=== PATIENT | female | born 1965 | race Caucasian/White ===

== ENCOUNTER 2022-02-10 05:54 | Emergency (ER) | payer BC ==
[2022-02-10 06:02] VITALS: BP 140/87; PULSE 80; TEMP 97.9; BMI 34.3
[2022-02-10] MEDS ORDERED: diazePAM 5 MG TABLET PO ONE (06:05)
[2022-02-10] MEDS ORDERED: IBUPROFEN 600 MG TABLET (FP) PO ONE (06:05)
[2022-02-10] MEDS ORDERED: KETOROLAC TROMETHAMINE 30 MG/1 ML VIAL IVPUSH ONE (06:15)
[2022-02-10] MEDS ORDERED: KETOROLAC TROMETHAMINE 30 MG/1 ML VIAL ONE (06:25)
[2022-02-10] MEDS ORDERED: diazePAM 5 MG TABLET ONE (06:25)
[2022-02-10 07:42] LABS: HEMATOCRIT 38.3 % (32.4-45.2); HEMOGLOBIN 13.4 G/dL (10.7-15.3); MCH 31.3 pg (25.7-33.7); MCHC 34.9 g/dl (32.0-36.0); MEAN CELL VOLUME 89.4 fl (80-96); MEAN PLT VOLUME 8.6 fl (7.5-11.1); PLATELET COUNT 322.4 10^3/uL (134-434); RBC 4.28 10^6/uL (3.60-5.2); RDW 13.5 % (11.6-15.6); WHITE BLOOD COUNT 10.5 10^3/uL (4.0-10.8)
[2022-02-10 07:43] LABS: ALBUMIN 3.8 g/dl (3.4-5.0); CALCIUM 9.5 mg/dl (8.5-10); CREATININE 0.9 mg/dl (0.55-1.3); TOT PROT 6.8 g/dl (6.4-8.2)
[2022-02-10 08:08] LABS: EPITHELIAL CELLS FEW /hpf
== END 2022-02-10 10:41 | disposition home or self-care (01) ==
LOC: FER 05:54
PROC: 3E033GC Introduction of Other Therapeutic Substance into Peripheral Vein, Percutaneous Approach (ICD-10-PCS; principal; 2022-02-10)
DX: R10.9 Unspecified abdominal pain (principal)
CPT/HCPCS: 36415; 74176-TC; 80053; 81003; 81015; 85025; 99285-25

== ENCOUNTER 2024-04-04 17:44 | Emergency (ER) | payer BC ==
[2024-04-04 18:00] VITALS: BP 138/90; PULSE 76; RESP 16; TEMP 98.1; BMI 35.6
[2024-04-04] MEDS ORDERED: KETOROLAC TROMETHAMINE 15 MG/ML VIAL ONE (18:09)
[2024-04-04] MEDS: SODIUM CHLORIDE 1,000 ML IV ONE (18:20)
[2024-04-04] MEDS: KETOROLAC TROMETHAMINE 30 MG/1 ML VIAL IVPUSH ONE (18:25)
[2024-04-04 18:31] LABS: EPITHELIAL CELLS 0-5 /hpf
[2024-04-04 18:36] LABS: HEMATOCRIT 39.4 % (32.4-45.2); HEMOGLOBIN 12.9 G/dL (10.7-15.3); MCH 29.4 pg (25.7-33.7); MCHC 32.8 g/dl (32.0-36.0); MEAN CELL VOLUME 89.8 fl (80-96); MEAN PLT VOLUME 8.5 fl (7.5-11.1); PLATELET COUNT 279.8 10^3/uL (134-434); RBC 4.39 10^6/uL (3.60-5.2); RDW 13.8 % (11.6-15.6)
[2024-04-04 18:57] LABS: ALBUMIN 4.1 g/dl (3.4-5.0); BILIRUBIN,TOTAL 0.4 mg/dl (0.2-1); CALCIUM 9.4 mg/dl (8.5-10.1); CREATININE 0.8 mg/dl (0.6-1.3); POTASSIUM 4.3 mmol/L (3.5-5.1); TOT PROT 6.7 g/dl (6.4-8.2)
[2024-04-04 19:01] LABS: PLATELET ESTIMATE ADEQUATE
[2024-04-04] MEDS ORDERED: CYCLOBENZAPRINE HCL 10 MG TABLET (FP) PO ONE (21:36)
[2024-04-04] MEDS ORDERED: CYCLOBENZAPRINE HCL 5 MG TABLET ONE (21:37)
== END 2024-04-04 21:18 | disposition home or self-care (01) ==
LOC: FER 17:44
PROC: 3E0333Z Introduction of Anti-inflammatory into Peripheral Vein, Percutaneous Approach (ICD-10-PCS; principal; 2024-04-04)
PROC: 3E0337Z Introduction of Electrolytic and Water Balance Substance into Peripheral Vein, Percutaneous Approach (ICD-10-PCS; 2024-04-04)
DX: R10.9 Unspecified abdominal pain (principal)
CPT/HCPCS: 36415; 74176-TC; 80053; 81003; 81015; 85027; 99284-25

== ENCOUNTER 2025-02-20 16:13 | Emergency (ER) | payer BC ==
[2025-02-20 16:32] VITALS: BP 119/91; PULSE 78; RESP 18; TEMP 98.2; BMI 36.8
== END 2025-02-20 18:44 | disposition home or self-care (01) ==
LOC: FER 16:13
DX: R07.9 Chest pain, unspecified (principal)
CPT/HCPCS: 99282-25